=== PATIENT | male | born 1995 | race Two or more races ===

== ENCOUNTER 2020-06-14 05:16 | Emergency (ER) | payer SELFPAY ==
[~2020-06-14] VITALS: Ht 165.1 cm; Wt 68.5 kg
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
--- NOTE | 2020-06-14 05:37 | NUR ---
RADIOLOGY AT BEDSIDE FOR XRAY.
[2020-06-14 07:00] VITALS: BP 123/78
--- NOTE | 2020-06-14 07:00 | NUR ---
Patient discharged to home in stable condition. Written and verbal after care instructions given. Patient verbalizes understanding of instruction.
== END 2020-06-14 07:04 | disposition home or self-care (01) ==
LOC: ER 05:19
DX: S20.219A Contusion of unspecified front wall of thorax, initial encounter (principal); M25.552 Pain in left hip; X58.XXXA Exposure to other specified factors, initial encounter; Y93.89 Activity, other specified; Y92.89 Other specified places as the place of occurrence of the external cause; Y99.8 Other external cause status
CPT/HCPCS: 71045-TC; 73502